=== PATIENT | female | born 1975 ===

== ENCOUNTER → 2018-01-23 18:56 | Outpatient (REF) | payer OTHER, MEDICAID, SELFPAY ==
[2018-01-23 18:59] LABS: Bacteria Urine None Seen; RBC Urine None Seen (0-5/HPF)
[2018-01-23 19:04] LABS: Appearance Urine UA CLEAR; Bilirubin Urine UA NEGATIVE (NEGATIVE); Color Urine UA YELLOW; Glucose Urine UA NEGATIVE (Normal); Ketones Urine UA NEGATIVE (NEGATIVE); Leukocyte Esterase Urine UA 2+ (NEGATIVE); Nitrite Urine UA Negative (Negative); Occult Blood Urine UA 2+ (Negative); Protein Urine UA NEGATIVE (Negative); Specific Gravity Urine UA <=1.005 (1.000-1.035); Urobilinogen Urine UA 0.2 E.U./dL (0.2)
[2018-01-23 19:17] LABS: Culture Indicated Urine Specimen Cultured; WBC Urine 10-30/HPF (0-5/HPF)
== END ==
LOC: LAB 18:56
PROVIDERS: Visit Provider Naturopath
DX: R31.9 Hematuria, unspecified (principal)
CPT/HCPCS: 81001; 87077; 87086; 87147

== ENCOUNTER → 2018-01-31 19:11 | Outpatient (REF) | payer OTHER, MEDICAID, SELFPAY | LOC: LAB 19:11 | PROVIDERS: Visit Provider Naturopath | DX: R31.9 Hematuria, unspecified (principal) | CPT/HCPCS: 87077; 87086; 87186 ==